=== PATIENT | female | born 1980 | race Asian ===

== ENCOUNTER → 2025-03-21 | Outpatient (CLI) | payer MEDICAID, SELFPAY ==
--- NOTE | 2025-03-21 12:42 | XR_ITS ---
Examination: Breast ultrasound, unilateral, left Date and time of exam: March 21, 2025 1252 hours INDICATIONS: History bilateral nipple are seen with history left breast abscess September 2024, worsening pain involving the left breast over the last month Technique: Real-time deleon scale ultrasonographic imaging performed left breast including all 4 quadrants as well as nipple retroareolar and axillary region. Findings: 12:00 to 6:00 edematous masslike area 7.9 x 2.6 x 4.4 cm IMPRESSION: 12- 6:00 edematous masslike area 7.9 x 2.6 x 4.4 cm, differential would include large abscess, inflammatory breast cancer Recommend diagnostic mammography follow-up
--- NOTE | 2025-03-21 12:50 | XR_ITS ---
Examination: Diagnostic digital mammography, bilateral Computer aided detection 3-D breast Tomosynthesis, bilateral Date and time of exam: March 21, 2025 1331 hours Comparison left breast sonogram March 21, 2021 Technique: Nonmagnified MLO, CC views of the breasts to been obtained, reconstructed from 3-D Tomosynthesis images. R2 computer aided detection program utilized for evaluation of suspicious masses and/or abnormal calcifications. 3-D Tomosynthesis images obtained. Findings: The breasts are heterogeneously dense, which may obscure small masses Diffuse abnormal increased density in the left breast Suspicious grouped microcalcifications upper outer left breast Impression: BI-RADS Category 0: Incomplete: Need additional imaging evaluation Recommend follow-up magnification views of microcalcifications in the upper outer quadrant left breast Abnormal diffuse increased density in the left breast corresponding to the abnormal ultrasound findings, differential would include abscess left breast, inflammatory breast cancer not excluded Follow-up left breast sonography in 2-4 weeks post antibiotic therapy, further recommendations as above.
== END | disposition home or self-care (01) ==
LOC: CDIM 11:47
PROVIDERS: PCP Family Medicine; Referring Provider Surgery; Visit Provider Surgery
DX: R92.8 Other abnormal and inconclusive findings on diagnostic imaging of breast (principal); R60.9 Edema, unspecified
CPT/HCPCS: 76641; 77062; 77066; G0279

== ENCOUNTER → 2025-05-03 | Outpatient (CLI) | payer MEDICAID, SELFPAY ==
[2025-05-01 12:54] LABS: HCG Qualitative,Urine Negative
--- NOTE | 2025-05-03 09:30 | XR_ITS ---
Examination: CT chest with intravenous contrast CT chest without intravenous contrast 2-D reconstructions Date and time of exam:May 03, 2025 1018 hours INDICATIONS: Left breast lump with pain noticed beginning September 2024 CTDI:vol (mGy) 26.4 DLP: (mGycm) 899 Technique: Multiple axial sections of the thorax have been obtained. 3 mm slice thickness, from the hemidiaphragms to above the apices of the lungs. Mediastinal and lung density settings have been obtained. Intravenous contrast administered 60 cc Isovue-370. Noncontrast images have also been obtained. 2-D sagittal coronal images obtained. Low dose protocols were performed. One or more of the following dose reduction techniques were used; automated exposure control, adjustment of the mA and/or KV according to patient size, use of iterative reconstruction technique. Findings: No thoracic aortic aneurysm dilatation No pulmonary artery filling defects. No paratracheal tracheobronchial or bronchopulmonary adenopathy. 8 mm soft pulmonary nodule right upper lobe 6 mm soft pulmonary nodule right upper lobe 6 mm soft pulmonary nodule right lower lobe. No pneumonia or pulmonary edema Skin thickening left breast with increased density in the retroareolar region left breast as well as 10 mm nodule medial left breast No pathologic axillary lymphadenopathy No visualized liver or splenic lesion Cholelithiasis Moderate osteopenia 5 mm sclerotic focus T3 IMPRESSION: Pulmonary nodules as above, recommend continued 6 month follow-up CT chest without contrast Skin thickening left breast with increased density in the retroareolar region left breast, 10 mm nodule medial left breast, please see the breast sonography report March 21, 2025 and mammogram report March 21, 2025 Sclerotic focus T3 vertebral body, recommend MRI thoracic spine follow-up pre and postcontrast, as well as whole body bone scan
== END | disposition home or self-care (01) ==
PROVIDERS: PCP Surgery; Referring Provider Surgery; Visit Provider Surgery
DX: R91.8 Other nonspecific abnormal finding of lung field (principal); R92.30 Dense breasts, unspecified; Z32.00 Encounter for pregnancy test, result unknown
CPT/HCPCS: 36415; 71270; 81025; 84702; A4649; Q9967

== ENCOUNTER → 2025-06-11 | Outpatient (CLI) | payer MEDICAID, SELFPAY ==
[2025-06-10 13:16] LABS: Basophils # (Auto) 0.1 Thou/mm3 (0.0-0.2); Basophils % (Auto) 0 % (0-2.5); Eosinophils # (Auto) 0.1 Thou/mm3 (0.0-0.5); Eosinophils % (Auto) 1 % (0-10); Hematocrit 32.6 % (36.0-46.0); Hemoglobin 10.8 g/dL (12.0-16.0); Immature Granulocytes Auto 0.06 Thou/mm3 (0.00-0.00); Lymphocytes # (Auto) 1.2 Thou/mm3 (1.0-4.8); Lymphocytes % (Auto) 9 % (10-50); Mean Corpuscular HGB Conc 33.1 g/dl (31.0-37.0); Mean Corpuscular Hemoglobin 25.1 pg (25.0-35.0); Mean Corpuscular Volume 76 fL (80-100); Monocytes # (Auto) 0.8 Thou/mm3 (0.0-0.8); Monocytes % (Auto) 6 % (0-12); Neutrophils # (Auto) 11.0 Thou/mm3 (1.8-7.7); Neutrophils % (Auto) 83 % (37-80); Nucleated Red Blood Cell # 0.00 Thou/mm3 (0.00-0.00); Nucleated Red Blood Cell % 0 /100 WBC (0); Platelet Count 270 Thou/mm3 (140-440); RDW Standard Deviation 38.9 fL (36.4-46.3); Red Blood Count 4.30 Miln/mm3 (4.00-5.20); White Blood Count 13.3 Thou/mm3 (3.6-11.0)
[2025-06-10 13:30] LABS: HCG,Qualitative Serum Negative
[2025-06-10 13:40] LABS: INR 1.0 (0.9-1.3); Partial Thromboplastin Time 27.2 Seconds (22.0-36.0); Prothrombin Time 10.4 Seconds (9.0-12.2)
--- NOTE | 2025-06-11 08:30 | XR_ITS ---
Examination: Stereotactic guided vacuum assisted left breast biopsy with clip placement Specimen radiograph Date and time of exam: June 11, 2025, 0906 hours INDICATIONS: Mammogram March 21, 2025 BI-RADS 4 suspicious mass with microcalcifications outer left breast Timeout performed, documenting correct patient, order, referring physician, patient's site and reason for procedure, allergies to medications Informed consent provided. Time out performed Technique: The lesion left was localized with a stereotactic apparatus. Local anesthesia was obtained after prepping the skin at the entrance site and applying sterile drape Maximum sterile barrier technique. 3 core biopsies were then obtained, vacuum assisted, stereotactically guided, at the lesion site. Specimens appear adequate. Stereotactic breast marker was introduced at the lesion site Estimated blood loss 2 cc. Patient tolerated the procedure well and appeared in satisfactory and stable condition at completion of the procedure Pathology report to follow Impression: Successful stereotactic breast biopsy as described above. Specimen radiograph contains the biopsied suspicious microcalcifications.
== END | disposition home or self-care (01) ==
LOC: CDIM 06-13 09:50 → SIRX 06-19 22:14
PROVIDERS: Radiology Diagnostic Radiology; PCP Surgery; Referring Provider Surgery; Visit Provider Surgery
DX: C50.912 Malignant neoplasm of unspecified site of left female breast (principal); Z17.0 Estrogen receptor positive status [ER+]; N63.20 Unspecified lump in the left breast, unspecified quadrant; Z17.21 Progesterone receptor positive status
CPT/HCPCS: 19081; 36415; 84703; 85025; 85610; 85730; A4648; A4649

== ENCOUNTER → 2025-07-14 | Outpatient (CLI) | payer MEDICAID, SELFPAY ==
[2025-07-12 16:49] LABS: HCG Qualitative,Urine Negative
--- NOTE | 2025-07-14 12:00 | XR_ITS ---
EXAMINATION: MRI breast bilateral without intravenous contrast MRI breast bilateral with intravenous contrast INDICATIONS: Diagnosis malignant neoplasm of overlapping sites of the left female breast, diagnosed June 19, 2025 Stereotactic breast biopsy June 11, 2025 Date and time: July 14, 2025, 1211 hours, comparison breast biopsy June 11, 2025, CT chest May 03, 2025, mammogram March 21, 2025, left breast sonogram March 21, 2025 TECHNIQUE AND FINDINGS: Multiple bilateral breast MRI images pre and post 16 cc gadolinium Heterogeneous signal throughout both breasts More pronounced diffuse increase signal in the left breast with marked skin thickening Mass in the central outer left breast at least 34 x 25 mm No chest wall mass Pathologic multiple enlarged left axillary lymph nodes No dominant right breast mass lesion depicted Addendum will be made when the patient's [employer] software is available IMPRESSION: BI-RADS Category 0: Incomplete: Need additional imaging evaluation This patient should return for bilateral breast sonography with a radiologist in attendance to assess the mass in the central outer left breast and pathologic lymph nodes in the left axillary region
== END | disposition home or self-care (01) ==
LOC: SMRI 10:59
PROVIDERS: PCP Specialist; Referring Provider Specialist; Visit Provider Specialist
DX: R92.8 Other abnormal and inconclusive findings on diagnostic imaging of breast (principal); N63.32 Unspecified lump in axillary tail of the left breast; N63.20 Unspecified lump in the left breast, unspecified quadrant; C50.812 Malignant neoplasm of overlapping sites of left female breast; Z32.00 Encounter for pregnancy test, result unknown
CPT/HCPCS: 77049; 81025; A9577; C8908